=== PATIENT | female | born 1990 | race Two or more races ===

== ENCOUNTER 2025-01-12 14:02 | Outpatient (CLI) | payer OTHER | END 2025-01-12 14:04 | disposition home or self-care (01) | LOC: PRENATAL 14:02 | PROVIDERS: ATTEND Obstetrics & Gynecology Maternal & Fetal Medicine | DX: O36.80X0 Pregnancy with inconclusive fetal viability, not applicable or unspecified (principal); Z36.82 Encounter for antenatal screening for nuchal translucency; O09.519 Supervision of elderly primigravida, unspecified trimester; Z3A.12 12 weeks gestation of pregnancy ==

== ENCOUNTER → 2025-03-08 12:38 | Outpatient (CLI) | payer OTHER | END | disposition home or self-care (01) | LOC: PRENATAL 12:38 | PROVIDERS: ATTEND Obstetrics & Gynecology Maternal & Fetal Medicine | DX: O44.00 Complete placenta previa NOS or without hemorrhage, unspecified trimester (principal); O09.519 Supervision of elderly primigravida, unspecified trimester; Z3A.20 20 weeks gestation of pregnancy ==

== ENCOUNTER 2025-05-02 14:42 | Outpatient (CLI) | payer OTHER | END 2025-05-02 14:46 | disposition home or self-care (01) | LOC: PRENATAL 14:42 | PROVIDERS: ATTEND Obstetrics & Gynecology Maternal & Fetal Medicine | DX: O26.849 Uterine size-date discrepancy, unspecified trimester (principal); O44.00 Complete placenta previa NOS or without hemorrhage, unspecified trimester; O09.519 Supervision of elderly primigravida, unspecified trimester; Z3A.28 28 weeks gestation of pregnancy ==

== ENCOUNTER 2025-05-11 12:12 | Emergency (ER) | payer OTHER ==
[~2025-05-11] VITALS: Ht 170.2 cm; Wt 79.4 kg
[2025-05-11] MEDS ORDERED: PRENATE DHA SO1 EAC1 (12:48)
[2025-05-11] MEDS ORDERED: CEFTRIAXONE SODIUM 1,000 MG VIAL ONE (13:21)
[2025-05-11] MEDS ORDERED: [UNRECOGNIZED DRUG - OTHER] BUCAL (13:28)
[2025-05-11] MEDS ORDERED: AMOX-CLAV 875-1 EACH PO (13:28)
[2025-05-11] MEDS ORDERED: CEFTRIAXONE SODIUM 1,000 MG VIAL IM ONE (13:30)
== END 2025-05-11 13:36 | disposition home or self-care (01) ==
LOC: ER 12:17
DX: O99.891 Other specified diseases and conditions complicating pregnancy (principal); Z3A.29 29 weeks gestation of pregnancy; K08.89 Other specified disorders of teeth and supporting structures

== ENCOUNTER 2025-07-14 14:00 | Inpatient (IN) | payer OTHER ==
[~2025-07-14] VITALS: Ht 170.2 cm; Wt 83.9 kg
[~2025-07-14 14:00] MED LIST: AMOX-CLAV 875-1 EACH PO; PRENATE DHA SO1 EAC1; [UNRECOGNIZED DRUG - OTHER] BUCAL
[2025-07-25 08:13] VITALS: BP 120/76
[2025-07-25] MEDS ORDERED: OXYTOCIN 500 ML IV SCH (08:45)
[2025-07-25 09:01] LABS: BASO % 0.1 % (0.1-1.2); EOS # 0.04 (0.04-0.54); EOS % 0.6 % (0.7-7.0); LYMPH # 1.27 (1.18-3.74); LYMPH % 18.0 % (19.3-53.1); MEAN PLATELET VOLUME 9.80 fl (9.4-12.4); MONO # 0.59 (0.24-0.82); MONO % 8.3 % (4.7-12.5); NEUT # 5.08 (1.56-6.13); NEUT % 71.9 % (34.0-71.1); RED CELL DISTRIBUTION WIDTH 18.6 % (11.6-14.4)
[2025-07-25 09:06] LABS: URINE CAST 1.61 uL (0.0-1.40); URINE EPITHELIAL CELLS 36.7 uL (0.0-38.8); URINE RBC 3.0 uL (0.0-20.8); URINE WBC 243.8 uL (0.0-23.2)
[2025-07-25 09:15] LABS: URINE APPEARANCE Clear; URINE BILIRRUBIN Negative (NEGATIVE); URINE BLOOD Negative; URINE COLOR Yellow; URINE GLUCOSE Negative (NEGATIVE); URINE KETONE Trace (NEGATIVE); URINE LEUKOCYTE Moderate; URINE NITRATE Negative; URINE PROTEIN 30 (NEGATIVE); URINE UROBILINOGEN 1.0 E.U./dl
[2025-07-25 09:24] LABS: INR 0.95
[2025-07-25 09:26] LABS: ALT/SGPT 47.0 U/L (12-78); AST/SGOT 24.0 U/L (15-37); BILIRUBIN TOTAL 0.32 mg/dL (0.3-1.2); BUN CREA RATIO 15.0 (7.0-25.0); CREATININE SERUM 0.65 mg/dL (0.55-1.02); GFR 103.72; GLOBULINA 3.9 G/DL (2.4-3.5); GLUCOSE FASTING 117.0 mg/dL (65-100); OSMOLALITY SERUM 279.0 MOSM/KG (275-295)
[2025-07-25 12:33] VITALS: BP 116/93
[2025-07-25] MEDS ORDERED: IRON325 MG PO (12:36)
[2025-07-25] MEDS ORDERED: LIDOCAINE HCL 1% 10ML VIAL ONE ×2 (14:17→14:38)
[2025-07-25] MEDS ORDERED: OXYTOCIN 20 UNITS/1000ML RL PIGGYBAG IV ONE (14:17)
[2025-07-25] MEDS ORDERED: CHLORHEXIDINE GLUCONATE 120 ML BOTTLE TOP ONE (14:17)
[2025-07-25] MEDS ORDERED: ERYTHROMYCIN BASE OPHT 1GM EACH TUBE OP ONE (14:17)
[2025-07-25 14:54] VITALS: BP 122/65
[2025-07-25 15:09] VITALS: BP 120/55
[2025-07-25 15:10] VITALS: BP 124/64
[2025-07-25] MEDS ORDERED: ACETAMINOPHEN 500 MG GEL..CAP PO PRN (15:30)
[2025-07-25] MEDS ORDERED: OXYTOCIN 1,000 ML IV SCH (15:30)
[2025-07-25 17:56] VITALS: BP 117/71
[2025-07-25 20:25] LABS: BASO % 0.1 % (0.1-1.2); EOS # 0.00 (0.04-0.54); EOS % 0.0 % (0.7-7.0); LYMPH # 1.17 (1.18-3.74); LYMPH % 7.4 % (19.3-53.1); MEAN PLATELET VOLUME 9.50 fl (9.4-12.4); MONO # 0.85 (0.24-0.82); MONO % 5.4 % (4.7-12.5); NEUT # 13.70 (1.56-6.13); NEUT % 86.7 % (34.0-71.1); RED CELL DISTRIBUTION WIDTH 18.6 % (11.6-14.4)
[2025-07-26 01:01] VITALS: BP 116/75
[2025-07-26 08:00] VITALS: BP 113/78
[2025-07-26] MEDS ORDERED: IRON/V.C/V.B12/FOLIC A/VIT. E 1 CAPL CAPLET PO SCH (09:00)
[2025-07-26] MEDS ORDERED: PNV,CALCIUM 72/IRON/FOLIC ACID 1 TAB TABLET PO SCH (09:00)
[2025-07-26 16:00] VITALS: BP 90/64
[2025-07-27 01:45] VITALS: BP 103/67
[2025-07-27 08:00] VITALS: BP 110/75
== END 2025-07-27 11:45 | disposition home or self-care (01) | DRG 807 ==
LOC: LDR 07-24 14:00 → OB/GYN 07-25 15:16
PROVIDERS: ADMIT Student in an Organized Health Care Education/Training Program; ATTEND Student in an Organized Health Care Education/Training Program
PROC: 10E0XZZ Delivery of Products of Conception, External Approach (ICD-10-PCS; principal; 2025-07-25)
PROC: 0KQM0ZZ Repair Perineum Muscle, Open Approach (ICD-10-PCS; 2025-07-25)
PROC: 0UQG7ZZ Repair Vagina, Via Natural or Artificial Opening (ICD-10-PCS; 2025-07-25)
PROC: 4A1HXCZ Monitoring of Products of Conception, Cardiac Rate, External Approach (ICD-10-PCS; 2025-07-25)
DX: O70.1 Second degree perineal laceration during delivery (principal); Z37.0 Single live birth; Z3A.40 40 weeks gestation of pregnancy